=== PATIENT | female | born 1985 | race Caucasian/White ===

== ENCOUNTER → 2017-04-13 | Outpatient (CLI) | payer BC ==
[~2017-04-13] MED LIST: DORYX MPC120 MG PO
[2017-04-13 11:31] LABS: HEMATOCRIT 41.4 % (35.0-45.0); HEMOGLOBIN 13.9 gm/dL (12.0-16.0); MEAN CELL VOLUME 90.1 FL (83-96); MEAN CORPUSCULAR HEMOGLOBIN 30.3 PG (28-34); MEAN CORPUSCULAR HGB CONC 33.6 g/dL (30-36); MEAN PLATELET VOLUME 9.4 FL (6.5-11.5); RED BLOOD COUNT 4.59 X10e (3.90-5.30); RED CELL DISTRIBUTION WIDTH 13.3 % (11.0-15.5); WHITE BLOOD COUNT 7.5 X10e3 (4.0-10.5)
[2017-04-13 12:14] LABS: ALBUMIN SERUM 4.3 g/dL (3.5-5.0); BUN/CREATININE RATIO 15.55; CALCIUM SERUM 9.3 mg/dL (8.4-10.2); CREATININE SERUM 0.9 mg/dL (0.6-1.4); GLOM FILT RATE Estimated 84.1 mL/min (>60); POTASSIUM 4.4 mmol/L (3.5-5.1); PROTEIN TOTAL SERUM 6.6 g/dL (6.0-8.3)
== END | disposition home or self-care (01) ==
LOC: CAMB 09:55
PROVIDERS: Specialist
DX: Z01.812 Encounter for preprocedural laboratory examination (principal)
CPT/HCPCS: 36415; 80053; 85027

== ENCOUNTER → 2017-04-20 | Day surgery (SDC) | payer BC ==
--- NOTE | ~2017-04-20 | OR ---
Unit #: [id number] #: [id number] Patient: SG REDDY [id number] [facility] [address] [facility]. [place], [place] [address] [id number] MR#: [id number] NAME: SG REDDY ROOM: Date of Procedure: 04/20/2017 Admission Date: 04/20/2017 Surgeon: Zachary Wall M.D. : 1985 Attending Physician: Zachary Wall M.D. Primary Care Physician: [facility] OPERATIVE REPORT PREOPERATIVE DIAGNOSIS Chronic cholecystitis with cholelithiasis. POSTOPERATIVE DIAGNOSIS Chronic cholecystitis with cholelithiasis. PROCEDURE PERFORMED Laparoscopic cholecystectomy. ANESTHESIA General endotracheal anesthesia. ESTIMATED BLOOD LOSS Less than 10 mL. INDICATIONS FOR PROCEDURE A 31-year-old female, who is having postprandial nausea and right upper quadrant pain. Ultrasound revealed cholelithiasis. Preoperative liver chemistries were normal. DESCRIPTION OF PROCEDURE The patient was admitted to [facility], positively identified, and transported to the operating room, and after induction of general endotracheal anesthesia, she received IV antibiotics per SCIP protocol. After being prepped and draped in usual sterile fashion, a 5-mm infraumbilical incision was made transversely. Veress needle was placed. Pneumoperitoneum was created. Then, a 5-mm trocar was placed. Laparoscope was introduced into the peritoneal cavity. Under direct vision, the epigastric and lateral ports were placed. On laparoscopic evaluation of the abdomen, no abnormalities were noted. The gallbladder was grasped and elevated. Adhesions were taken down by cautery and sharp dissection and the infundibulum was retracted laterally. I dissected out the triangle of Calot clearly identifying the cystic duct, gallbladder, and cystic duct-common duct junctions, and the cystic artery. The cystic artery was anterior and it was quite large. It was doubly clipped proximally and distally and sharply divided. The cystic duct was seen throughout its entirety. I swept the cystic duct upwards and then placed a clip on the cystic duct centered to gallbladder. Three clips were placed distally and the cystic duct was sharply divided. The gallbladder was brought out through the epigastric port. There was no spillage of bile or stones. There was good hemostasis. The epigastric fascial defect was closed with the neoClose device and the closure was airtight. I then Unit #: [id number] #: [id number] Patient: SG REDDY reduced the pneumoperitoneum as I removed laparoscope and other trocars. 0.5% Marcaine with epinephrine was infiltrated into each trocar site. The skin was closed with 4-0 Monocryl subcuticular closure and Dermabond skin adhesive. Sponges and needle counts were correct x3. The patient tolerated the procedure well and was transported to recovery in stable condition. Findings and postoperative instructions were discussed with her . Dictated by... Crystal Wilson/lexie TD: 04/20/2017 15:54 JOB #: [id number] OPERATIVE REPORT Page 1 of 1 X Zachary Wall MD PROCEDURE OPERATIVE NOTE
== END | disposition home or self-care (01) ==
LOC: CSUR 05:24
DX: K80.10 Calculus of gallbladder with chronic cholecystitis without obstruction (principal); Z86.2 Personal history of diseases of the blood and blood-forming organs and certain disorders involving the immune mechanism; Z79.2 Long term (current) use of antibiotics; Z98.818 Other dental procedure status; Z98.890 Other specified postprocedural states
CPT/HCPCS: 84703; 88304; J0330; J0690; J1100; J2250; J2405; J2710; J3010